=== PATIENT | male | born 2000 | race African-American/Black ===

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

== ENCOUNTER 2020-01-17 00:16 | Emergency (ER) | payer SELFPAY ==
[~2020-01-17] VITALS: Ht 170.2 cm; Wt 83.1 kg
[2020-01-17 00:20] VITALS: Ht 170.2 cm; Wt 83.1 kg
[2020-01-17] MEDS ORDERED: ALBUTEROL SULF8.5 GM (00:23)
[2020-01-17 01:10] LABS: BASOPHILS 0 % (0-2); EOSINOPHILS 10.1 % (0-7); HEMATOCRIT 42.5 % (42.0-54.0); HEMOGLOBIN 14.4 g/dL (13.5-17.5); IMMATURE GRANULOCYTES 0.4 % (0-5); LYMPHOCYTES 40.9 % (15-50); MCH 29.3 pg (26.0-34.0); MCHC 33.9 g/dL (31.0-37.0); MCV 86.6 fL (80.0-100.0); MEAN PLATELET VOLUME 10.5 fL (7.4-10.4); MONOCYTES 9.2 % (2-11); NEUTROPHILS 39.4 % (40-80); PLATELET COUNT 178 10x3/uL (130-400); RBC 4.91 10x6/uL (4.20-6.10); RDW 13.1 % (11.5-14.5); WBC 8.5 10x3/uL (4.8-10.8)
[2020-01-17 01:11] LABS: INR 0.88 (0.85-1.17); PROTIME 11.9 SECONDS (11.6-15.0)
[2020-01-17 01:12] LABS: CALC OSMOLALITY 274 mosm/kg (275-300); CALCIUM 8.9 mg/dL (8.5-10.1); CARBON DIOXIDE 29.3 mmol/L (21.0-32.0); CHLORIDE - SERUM 103 mmol/L (98-107); GLUCOSE 77 mg/dL (74-106); POTASSIUM - SERUM 3.9 mmol/L (3.5-5.1); SODIUM 138 mmol/L (136-145); UREA NITROGEN 12 mg/dL (7-18); eGFR NON AFRICAN AMERICAN > 90 mL/min (90-120)
[2020-01-17 01:14] LABS: BILIRUBIN NEGATIVE (NEGATIVE); GLUCOSE NEGATIVE (NEGATIVE); KETONE NEGATIVE (NEGATIVE); NITRITE NEGATIVE (NEGATIVE); SPECIFIC GRAVITY 1.015 (1.005-1.020); UROBILINOGEN NORMAL (NORMAL)
[2020-01-17 01:29] LABS: ALBUMIN 4.1 g/dL (3.4-5.0); ALKALINE PHOSPHATASE 66 U/L (30-120); ALT (SGPT) 46 U/L (10-68); BILIRUBIN - TOTAL 0.48 mg/dL (0.2-1.3); CKMB 0.6 U/L (0.0-3.6); CREATINE KINASE 229 UL (21-232); PRO BNP 15 pg/mL (0-125); PROTEIN - SERUM 7.4 g/dL (6.4-8.2)
[2020-01-17 01:30] LABS: C-REACTIVE PROTEIN < 0.2 mg/dL (0.0-0.9); TROPONIN-I < 0.017 ng/mL (0.000-0.060)
[2020-01-17] MEDS ORDERED: INDOCIN25 MG PO (02:09)
[2020-01-17 02:17] LABS: ERYTHROCYTE SEDIMENTATION RATE 1 mm/hr (0-15)
[2020-01-17 02:48] VITALS: BP 119/76
== END 2020-01-17 02:49 | disposition home or self-care (01) ==
LOC: D.ER 00:16
PROVIDERS: Family Medicine
DX: I31.9 Disease of pericardium, unspecified (principal); J45.909 Unspecified asthma, uncomplicated; R07.9 Chest pain, unspecified; R06.02 Shortness of breath